=== PATIENT | male | born 1970 | race African-American/Black ===

== ENCOUNTER 2018-07-10 07:53 | Day surgery (SDC) | payer OTHER ==
[2018-07-09 12:42] VITALS: BMI 34.8
[2018-07-10 10:28] VITALS: TEMP 97.6
[2018-07-10 11:32] VITALS: BP 145/86; PULSE 67
--- NOTE | 2018-07-13 11:12 | PATH ---
Surgical Pathology Report Patient Name: TISH CARPIO [facility]. Rec. #: [id number] /Age/Gender: 1970 (Age: 48) / M Account: [id number] Location: [facility]-ENDOSCOPY Taken: 07/10/2018 Received: 07/10/2018 Reported: 07/13/2018 Physicians: Freddy Arreguin M.D. Specimen(s) Received A: DUODENUM B: ANTRUM C: GE JUNCTION D: GASTRIC BODY E: RIGHT COLON Clinical History GERD, colon screening Postoperative diagnosis: Gastric polyps, hiatal hernia, GERD, right colon polyps Final Diagnosis A. DUODENUM, SECOND PORTION AND BULB, BIOPSY: DUODENAL MUCOSA WITH NO PATHOLOGIC CHANGES. NO HISTOLOGIC EVIDENCE OF GLUTEN SENSITIVE ENTEROPATHY (CELIAC SPRUE) IDENTIFIED. B. STOMACH, ANTRUM, BIOPSY: MILD REACTIVE GASTROPATHY AND CHRONIC GASTRITIS WITH FOCAL INTESTINAL METAPLASIA. NO DYSPLASIA IDENTIFIED. IMMUNOSTAIN FOR H. PYLORI IS NEGATIVE. C. GE JUNCTION, BIOPSY: SQUAMOUS EPITHELIUM WITH NO SIGNIFICANT PATHOLOGIC CHANGES. NO INTESTINAL METAPLASIA IDENTIFIED (NO DOZIER'S IDENTIFIED). D. STOMACH, BODY, BIOPSY: HYPERPLASTIC FOVEOLAR GLAND POLYP WITH ULCERATION AND ASSOCIATED ACUTE AND CHRONIC INFLAMMATION. FOCAL INTESTINAL METAPLASIA IS PRESENT. NO DYSPLASIA OR CARCINOMA IDENTIFIED. EXTENSIVE THERMAL ARTIFACT PRESENT. IMMUNOSTAIN FOR H. PYLORI IS POSITIVE (FEW ORGANISMS). E. COLON, RIGHT, BIOPSY: COLONIC MUCOSA WITH BENIGN LYMPHOID AGGREGATE IN LAMINA PROPRIA. NO ADENOMATOUS CHANGE IS IDENTIFIED. Electronically Signed Marek Patton M.D. Gross Description A. Received in formalin, labeled "biopsy second portion of duodenum and duodenal bulb" are 3 gilbert, irregular portions of soft tissue ranging from 0.3-0.4 cm. in greatest dimension. The specimens are submitted in toto in one cassette. B. Received in formalin, labeled "biopsy antrum" are 2 gilbert, irregular portions of soft tissue measuring 0.3 and 0.4 cm. in greatest dimension. The specimens are submitted in toto in one cassette. C. Received in formalin, labeled "biopsy GE junction" are 2 gilbert, irregular portions of soft tissue measuring 0.2 and 0.3 cm. in greatest dimension. The specimens are submitted in toto in one cassette. D. Received in formalin labeled "gastric body polyps," is a 1.0 x 0.8 x 0.6 cm pink-gilbert, polypoid portion of soft tissue. Separately received within the same container are 8 gilbert soft tissue fragments ranging from 0.1-0.3 cm in greatest dimension. The base of the polyp is inked blue and the polyp is bisected. The specimen is entirely submitted in 2 cassettes as follows: 1-smaller tissue fragments; 2-bisected polyp. E. Received in formalin, labeled "biopsy polyps right colon" are 4 gilbert, irregular portions of soft tissue measuring 0.2-0.3 cm. in greatest dimension. The specimens are submitted in toto in one cassette. 07/10/2018 [facility]07/10/2018
== END 2018-07-10 11:10 | disposition home or self-care (01) ==
LOC: JASU-ENDO 07:53
PROVIDERS: ATTEND Internal Medicine Gastroenterology
PROC: 0DB38ZX Excision of Lower Esophagus, Via Natural or Artificial Opening Endoscopic, Diagnostic (ICD-10-PCS; 2018-07-10)
PROC: 0DBK8ZX Excision of Ascending Colon, Via Natural or Artificial Opening Endoscopic, Diagnostic (ICD-10-PCS; 2018-07-10)
PROC: 0DB68ZX Excision of Stomach, Via Natural or Artificial Opening Endoscopic, Diagnostic (ICD-10-PCS; principal; 2018-07-10 08:45)
DX: Z12.11 Encounter for screening for malignant neoplasm of colon (principal); Z80.0 Family history of malignant neoplasm of digestive organs; D12.2 Benign neoplasm of ascending colon; K64.8 Other hemorrhoids; K63.89 Other specified diseases of intestine; K29.50 Unspecified chronic gastritis without bleeding; K21.9 Gastro-esophageal reflux disease without esophagitis; K44.9 Diaphragmatic hernia without obstruction or gangrene; K31.7 Polyp of stomach and duodenum
CPT/HCPCS: 88305-TC; 88342-TC